=== PATIENT | male | born 1965 | race Caucasian/White ===

== ENCOUNTER 2018-06-23 01:59 | Emergency (ER) | payer OTHER ==
[~2018-06-23] VITALS: Ht 182.9 cm; Wt 79.4 kg
[2018-06-23 02:23] VITALS: BP 109/69
== END 2018-06-23 03:09 ==
LOC: ER 02:04
DX: S01.01XA Laceration without foreign body of scalp, initial encounter (principal); V49.49XA Driver injured in collision with other motor vehicles in traffic accident, initial encounter; Y93.89 Activity, other specified; Y92.413 State road as the place of occurrence of the external cause; Y99.8 Other external cause status
CPT/HCPCS: A4606; Z7610